=== PATIENT | female | born 1955 | race Caucasian/White ===

== ENCOUNTER 2016-02-22 09:15 | Outpatient (RCR) | payer BC ==
[~2016-02-22 09:15] MED LIST: [UNRECOGNIZED DRUG - OTHER] PO
== END 2016-04-09 | disposition still patient (30) ==
LOC: MKS.ESL.PT
DX: M25.512 Pain in left shoulder (principal); M77.02 Medial epicondylitis, left elbow

== ENCOUNTER 2017-02-09 06:00 | Day surgery (SDC) | payer BC ==
[~2017-02-09] VITALS: Ht 170.2 cm; Wt 65.6 kg
[2017-02-09 06:32] VITALS: BP 147/82; PULSE 78; TEMP 97.5
[2017-02-09] MEDS ORDERED: ESTRACE0.5 MG PO (06:40)
[2017-02-09] MEDS ORDERED: NEURONTIN300 MG/CAP PO ×2 (06:41)
[2017-02-09 07:40] VITALS: BP 112/60; PULSE 62; TEMP 97.5
[2017-02-09 07:45] VITALS: BP 110/59; PULSE 58
[2017-02-09 08:00] VITALS: BP 117/65; PULSE 59
[2017-02-09 08:15] VITALS: BP 112/61; PULSE 53
== END 2017-02-09 08:15 | disposition home or self-care (01) ==
LOC: SDCO 06:00
DX: Z12.11 Encounter for screening for malignant neoplasm of colon (principal); Z86.010 Personal history of colon polyps; D12.0 Benign neoplasm of cecum
CPT/HCPCS: OP; J2250; J2405; J3010; J7030

== ENCOUNTER → 2017-03-01 | Outpatient (CLI) | payer BC ==
[~2017-03-01] VITALS: Ht 170.2 cm; Wt 66.6 kg
[~2017-03-01] MED LIST changes: +ASPIRIN 81M81 MG/TA2 PO; +ESTRACE0.5 MG PO; +NEURONTIN300 MG/CAP PO; +NEURONTIN600 MG/TAB PO; +VOLTAREN GEL 1%1 TU TP
[2017-03-01 07:15] VITALS: BP 170/86; PULSE 74
[2017-03-01 08:20] VITALS: BP 167/74; PULSE 68
== END ==
LOC: COL.RAD 02-26 07:00
DX: M54.12 Radiculopathy, cervical region (principal)
CPT/HCPCS: J1100

== ENCOUNTER → 2017-03-02 | Outpatient (CLI) | payer BC | LOC: MC.RAD 09:58 | DX: Z12.31 Encounter for screening mammogram for malignant neoplasm of breast (principal) ==

== ENCOUNTER → 2018-05-29 | Outpatient (CLI) | payer BC | LOC: MC.RAD 08:45 | DX: Z12.31 Encounter for screening mammogram for malignant neoplasm of breast (principal) ==

== ENCOUNTER 2018-11-19 22:19 | Emergency (ER) | payer BC ==
[~2018-11-19] VITALS: Ht 167.6 cm; Wt 61.8 kg
[2018-11-19 22:25] VITALS: BP 146/78; TEMP 98.1
[2018-11-19] MEDS ORDERED: CRUTCHES MC (23:47)
[2018-11-20 00:25] VITALS: PULSE 74
== END 2018-11-20 00:25 | disposition home or self-care (01) ==
LOC: COL.ER 22:19
DX: S93.402A Sprain of unspecified ligament of left ankle, initial encounter (principal); G89.29 Other chronic pain; M54.9 Dorsalgia, unspecified; M54.2 Cervicalgia; X50.1XXA Overexertion from prolonged static or awkward postures, initial encounter; Y92.009 Unspecified place in unspecified non-institutional (private) residence as the place of occurrence of the external cause; Z79.82 Long term (current) use of aspirin
CPT/HCPCS: Q4045

== ENCOUNTER → 2019-06-02 | Outpatient (CLI) | payer MEDICARE, BC ==
[~2019-06-02] MED LIST changes: +CRUTCHES MC
== END ==
LOC: MC.RAD 09:15
DX: Z12.31 Encounter for screening mammogram for malignant neoplasm of breast (principal)

== ENCOUNTER → 2020-06-02 | Outpatient (CLI) | payer MEDICARE, BC | LOC: MC.RAD 08:30 | DX: Z12.31 Encounter for screening mammogram for malignant neoplasm of breast (principal) ==

== ENCOUNTER 2021-01-20 15:31 | Emergency (ER) | payer MEDICARE, BC ==
[~2021-01-20] VITALS: Ht 167.6 cm; Wt 60.9 kg
[2021-01-20 16:48] LABS: BASO % 0.7 % (0.0-2.0); EOS # 0.2 K/mm3 (0.0-0.7); EOS % 3.5 % (0-4.0); GRAN # 2.2 K/mm3 (1.4-6.5); GRAN % 49.8 % (42.2-75.2); HEMATOCRIT 38.5 % (37.0-47.0); HEMOGLOBIN 12.4 g/dl (12.5-16.0); LYMPH # 1.4 K/mm3 (1.2-3.4); LYMPH % 31.2 % (20.0-51.0); MEAN CELL VOLUME 95 fl (80.0-100.0); MEAN CORPUSCULAR HEMOGLOBIN 31 pg (27.0-31.0); MEAN CORPUSCULAR HGB CONC 32 g/dl (33.0-37.0); MEAN PLATELET VOLUME 10.4 fl (7.4-10.4); MONO # 0.6 K/mm3 (0.1-0.6); MONO % 14.3 % (1.7-9.3); PLATELET COUNT 160 K/mm3 (130-400); RED BLOOD COUNT 4.04 M/mm3 (4.10-5.30); REDCELL DISTRIBUTION WIDTH-CV 13.1 % (11.5-14.5)
[2021-01-20 16:58] LABS: ALBUMIN 3.8 gm/dL (3.4-4.8); BILIRUBIN,TOTAL 0.4 mg/dL (0.2-1.2); CREATININE, serum 0.88 mg/dL (0.57-1.11); POTASSIUM 4.1 mmol/L (3.5-4.5); TOTAL PROTEIN 6.7 gm/dL (6.2-8.1)
[2021-01-20 20:25] VITALS: BP 172/83; PULSE 71; TEMP 98.2
== END 2021-01-20 20:30 | disposition short-term general hospital (02) ==
LOC: COL.ER 15:31
PROVIDERS: Personal Emergency Response Attendant
DX: S06.5X0A Traumatic subdural hemorrhage without loss of consciousness, initial encounter (principal); W19.XXXA Unspecified fall, initial encounter; W22.8XXA Striking against or struck by other objects, initial encounter
CPT/HCPCS: J2270; J2405; J7030

== ENCOUNTER → 2021-04-25 | Outpatient (RCR) | payer MEDICARE, BC | END | disposition home or self-care (01) | LOC: WSST | DX: S06.9X9S Unspecified intracranial injury with loss of consciousness of unspecified duration, sequela (principal); R41.89 Other symptoms and signs involving cognitive functions and awareness ==

== ENCOUNTER 2021-05-09 14:15 | Outpatient (RCR) | payer MEDICARE, BC | END 2021-05-23 | disposition home or self-care (01) | LOC: WSST | DX: S06.9X9S Unspecified intracranial injury with loss of consciousness of unspecified duration, sequela (principal); R41.89 Other symptoms and signs involving cognitive functions and awareness ==

== ENCOUNTER → 2021-06-30 | Outpatient (CLI) | payer MEDICARE, BC | LOC: MC.RAD 08:18 | DX: Z12.31 Encounter for screening mammogram for malignant neoplasm of breast (principal) ==

== ENCOUNTER → 2023-07-24 | Outpatient (CLI) | payer MEDICARE, BC ==
[~2023-07-24] MED LIST changes: +DEPAKOTE 250MG250 MG PO; +EFFEXOR 75M75 MG/TAB PO; +KLONOPIN 0.5MG0.5 MG PO; +MAG-OX 400400 MG/TAB PO; +MURO-128 5% OP3.5 GM OP; +NORVASC2.5 MG PO; +PAMELOR 10MG10 MG PO; +QUESTRAN4 GM/9 GM PO; +TOPROL XL100 MG PO
== END ==
LOC: MC.RAD 09:15
DX: Z12.31 Encounter for screening mammogram for malignant neoplasm of breast (principal)

== ENCOUNTER 2023-10-30 22:46 | Inpatient (IN) | payer MEDICARE, BC ==
[~2023-10-30] VITALS: Ht 170.2 cm; Wt 65.8 kg
[~2023-10-30 22:46] MED LIST changes: -EFFEXOR 75M75 MG/TAB PO; +EFFEXOR XR75 MG/CAP PO; +TOPROL XL 50MG50 MG PO; -TOPROL XL100 MG PO
[2023-10-30] MEDS ORDERED: Ketorolac 15 MG/ML VIAL IV ONE (23:00)
[2023-10-31] VITALS (10 sets, daily range): BP systolic 113–150; BP diastolic 65–78; PULSE 63–73; TEMP 97.5–98.4
[2023-10-31] MEDS ORDERED: Morphine 4 MG/ML VIAL IV ONE (00:30)
[2023-10-31 00:54] LABS: BASO % 0.5 % (0.0-2.0); EOS # 0.1 K/mm3 (0.0-0.7); EOS % 1.1 % (0.0-4.0); GRAN # 5.8 K/mm3 (1.4-6.5); GRAN % 76.1 % (42.2-75.2); HEMATOCRIT 38.3 % (37.0-47.0); HEMOGLOBIN 12.4 g/dl (12.5-16.0); LYMPH % 12.8 % (20.0-51.0); MEAN CELL VOLUME 95 fl (80.0-100.0); MEAN CORPUSCULAR HEMOGLOBIN 31 pg (27-31); MEAN CORPUSCULAR HGB CONC 32 g/dl (33.0-37.0); MONO # 0.7 K/mm3 (0.1-0.6); MONO % 9.1 % (1.7-9.3); PLATELET COUNT 208 K/mm3 (130-400); RED BLOOD COUNT 4.05 M/mm3 (4.10-5.30); REDCELL DISTRIBUTION WIDTH-CV 14.5 % (11.5-14.5)
[2023-10-31] MEDS ORDERED: EFFEXOR XR75 MG/CAP (01:05)
[2023-10-31] MEDS ORDERED: TRICOR145 MG PO (01:06)
[2023-10-31] MEDS ORDERED: NEURONTIN600 MG/TAB PO (01:11)
[2023-10-31 01:15] LABS: ALBUMIN 3.8 g/dL (3.4-4.8); BILIRUBIN,TOTAL 0.2 mg/dL (0.2-1.2); CREATININE, serum 0.98 mg/dL (0.57-1.11); POTASSIUM 4.4 mEq/L (3.5-4.5); TOTAL PROTEIN 6.9 g/dl (6.2-8.1)
[2023-10-31] MEDS ORDERED: Morphine 4 MG/ML VIAL IV PRN (01:45)
[2023-10-31] MEDS ORDERED: NS 1,000 ML IV SCH (02:15)
--- NOTE | 2023-10-31 02:31 | NUR ---
pt arrived to room 324 from ER at 0155. pt assisted to bed via slideboard and staff help. pt stating she only feels pain when moving. pt vitals WNL. pt on 2L NC as precaution to small pneumo, tolerating well. pt denies SOB. LSCTA. pt refused to put on gown d/t pain. yellow socks and fall risk band placed instead, yellow gown in room. admission, physical assessment, and med rec complete. pt authorized staff to give any information regarding patient care to Jagjit if he calls. pt reports she does wear contacts/glasses but does not have them with her d/t fall being in the shower and will bring everything tomorrow. ivf at 75ml/hr running to left ac iv without issue. pt denies hitting her head during fall. pt alert and oriented x4. pt reported 9/10 back pain after repositioning and requesting medications. PRN morphine administered per orders. fall precautions in place. call light in reach. all needs met at this time.
[2023-10-31] MEDS ORDERED: Ibuprofen 600 MG TAB PO PRN (07:30)
[2023-10-31] MEDS ORDERED: NEURONTIN300 MG/CAP PO (08:25)
--- NOTE | 2023-10-31 10:54 | NUR ---
D: Tower Helper stopped by room on rounds. A: Pt was resting and content with in the room. Pt has no needs right now. Both appreciated the visit. P: Tower Helper informed pt that if she needed anything from the glass sagger area to let her nurse know. Tower Helper will follow up as needed.
--- NOTE | 2023-10-31 10:59 | NUR ---
PT IN LAYING IN BED. ASSESSMENT COMPLETED EARLIER THIS MORNING. STATES THAT SHE DOES NOT LIKE MOVING BECAUSE OF THE PAIN IN HER SIDE. HER IS IN HER ROOM WITH HER. IV FLUIDS RUNNING THROUGH LAC, NO S&S OF IV COMPLICATIONS. PT HAS 2L O2 VIA NC GOING AT THIS MOMENT. CALL LIGHT WITHIN REACH NO OTHER CONCERNS AT THIS TIME.
--- NOTE | 2023-10-31 12:31 | NUR ---
Research Program Assistant met with patient to discuss discharge planning. Patient lives in [place] with her , Jagjit (ph#[phone]) who is at bedside. Patient sees Dr. Lance for primary care and gets medications from [facility] pharmacy with no difficulties. Patient does not normally use any DME but is currently on oxygen. Patient stated she is normally independent with ADLS including driving. Patient reported her , Jagjit is DPOA-HC. Patient hopes to be able to return home at time of discharge. Discharge Plan: Home
--- NOTE | 2023-10-31 16:33 | NUR ---
incentive spirometer not provided, contraindicated by respiratory therapist due to pneumothorax.
--- NOTE | 2023-10-31 19:02 | NUR ---
report received from юлия sarmiento. pt resting in bed with family at bedside. pt continues to report pain with movement but states she is comfortable. fall precautions in place. call light in reach. all needs met at this time.
--- NOTE | 2023-10-31 20:25 | NUR ---
shift assessment complete, see documentation. pt resting in bed, equal and unlabored breaths noted. no outward signs on pain present. pt ambulated to bathroom with x1 staff assist and tolerated well. fall precautions in place. call light in reach. all needs met at this time.
[2023-11-01] VITALS (12 sets, daily range): BP systolic 133–179; BP diastolic 73–92; PULSE 67–107; TEMP 98–98.3
--- NOTE | 2023-11-01 03:52 | NUR ---
pt reporting 9/10 rib pain, prn norco administered per orders.
--- NOTE | 2023-11-01 04:36 | NUR ---
pt reporting back spasms and a headache requesting PRN. morphine administered per orders.
--- NOTE | 2023-11-01 11:30 | NUR ---
PATIENT ALERT AND ORIENTED X4. VSS. PATIENT HERE FOR RIGHT RIB FX S/P FALL. PATIENT ON 2LNC. PATIENT REPORTS PAIN /, REQUESTS PAIN MEDICATION. PATIENT REPORTS SHE HAS NOT VOIDED BUT ONCE SINCE ADMISSIONS. PATIENT AMBULATED TO BATHROOM WITH THIS NURSE AND PCT. PATIENT EDUCATED ON IMPORTANCE OF EMPTYING BLADDER. PATIENT ENCOURAGED TO AMBULATE. THERAPY TO WORK WITH PATIENT TODAY. NO FURTHER NEEDS. CALL LIGHT IN REACH.
[2023-11-01] MEDS ORDERED: amLODIPine 5 MG TAB PO SCH (12:56)
[2023-11-01] MEDS ORDERED: SODIUM CHLORIDE 5% OP SCH (17:26)
[2023-11-01] MEDS ORDERED: hydrALAZINE 10 MG TAB PO PRN (18:00)
[2023-11-01] MEDS ORDERED: Albuterol/Ipratropium 3 MG-0.5 MG/3 ML Neb Soln IH PRN (18:00)
[2023-11-01] MEDS ORDERED: oxyCODONE 5 MG TAB PO PRN (18:15)
[2023-11-01] MEDS ORDERED: Acetaminophen 500 MG TAB PO SCH (18:15)
[2023-11-01] MEDS ORDERED: Mag/Al Hydrox/Simeth Susp 30 ML CUP PO PRN (18:45)
[2023-11-01] MEDS ORDERED: Albuterol/Ipratropium 3 MG-0.5 MG/3 ML Neb Soln IH SCH (19:00)
--- NOTE | 2023-11-01 19:10 | NUR ---
PT IN RECLINER, ASSISTED TO W/C TO GO TO CT.
--- NOTE | 2023-11-01 20:39 | NUR ---
PT IN BED AFTER CT SCAN. MEDICATED WITH HS MEDS INCLUDING OXYCODONE 5MG PO AND APRESOLINE 10MG PO FOR NVV=[id number]. IVF TO LAC INFUSING WITHOUT PROBLEM. HAS RT RIB PAIN, SMALL BRUISE TO RT UPPER BACK NOTED. WEARING OXYGEN AT 2L/NC.
[2023-11-01] MEDS ORDERED: Magnesium Oxide 400 MG TAB PO SCH (21:00)
[2023-11-01] MEDS ORDERED: Gabapentin 300 MG CAP PO SCH (21:00)
[2023-11-01] MEDS ORDERED: clonazePAM 0.25 MG TAB PO SCH (21:00)
--- NOTE | 2023-11-01 22:30 | NUR ---
REPEATED OXYCODONE 5MG PO FOR RT RIB PAIN. PT UP TO BATHROOM, HAS BM AND BACK TO BED.
[2023-11-02] VITALS (17 sets, daily range): BP systolic 118–167; BP diastolic 41–87; PULSE 66–94; TEMP 97.5–98.5
--- NOTE | 2023-11-02 02:23 | NUR ---
MEDICATED WITH ES TYLENOL 1000MG PO AND PRN OXYCODONE 5MG PO NOW FOR RT RIB PAIN.
--- NOTE | 2023-11-02 06:29 | NUR ---
PT IN BED, SCHEDULED AM MED GIVEN WITH PRN OXYCODONE 5MG PO FOR RT RIB PAIN. OXYGEN AT 2L/NC.
[2023-11-02 06:41] LABS: HEMOGLOBIN 10.8 g/dl (12.5-16.0); MEAN CELL VOLUME 94 fl (80.0-100.0); MEAN CORPUSCULAR HEMOGLOBIN 31 pg (27-31); MEAN CORPUSCULAR HGB CONC 33 g/dl (33.0-37.0); MEAN PLATELET VOLUME 10.4 fl (7.4-10.4); PLATELET COUNT 152 K/mm3 (130-400); RED BLOOD COUNT 3.54 M/mm3 (4.10-5.30); REDCELL DISTRIBUTION WIDTH-CV 14.2 % (11.5-14.5)
[2023-11-02 06:46] LABS: HEMATOCRIT 33.1 % (37.0-47.0)
[2023-11-02 07:00] LABS: ALBUMIN 2.9 g/dL (3.4-4.8); BILIRUBIN,TOTAL 0.8 mg/dL (0.2-1.2); CALCIUM 8.5 mg/dL (8.4-10.2); CREATININE, serum 0.68 mg/dL (0.57-1.11); MAGNESIUM 1.7 mg/dL (1.6-2.6); POTASSIUM 3.8 mEq/L (3.5-4.5); TOTAL PROTEIN 5.6 g/dl (6.2-8.1)
--- NOTE | 2023-11-02 07:00 | NUR ---
Pt laying in bed. Requested washcloth for face. No further needs. Call light in reach and bed alarm on.
[2023-11-02] MEDS ORDERED: Gabapentin 300 MG CAP PO SCH (07:30)
[2023-11-02 07:37] LABS: BAND 2 % (0-10); EOSINOPHIL 3 % (0-4); LYMPHOCYTE 25 % (20.0-51.0); NEUTROPHILS 54 % (42.0-75.2)
[2023-11-02 07:38] LABS: PLATELET ESTIMATE NORMAL (NORMAL)
[2023-11-02] MEDS ORDERED: amLODIPine 5 MG TAB PO SCH (09:00)
[2023-11-02] MEDS ORDERED: amLODIPine 5 MG TAB PO ONE (09:15)
[2023-11-02] MEDS ORDERED: SODIUM CHLORIDE 5% OP PRN (09:15)
--- NOTE | 2023-11-02 09:15 | NUR ---
Pt sitting up in chair. A&Ox4. VSS. S1S2. Clear left lung, diminished R lung. Pt taking showllow breaths due to pain on R side. Pt on 1 L via NC. ABD round, soft, non-tender with audible bowel sounds. Palpable pulses in all extremities. Pt reports pain 8/10 on R side. Administered pain meds. Per Dr Tellez keep Pt NPO. Pt did not eat breakfast, had sips of water with AM meds. No further needs at this time. Call light in reach and chair alarm on.
[2023-11-02] MEDS ORDERED: LR 1,000 ML IV SCH (12:00)
[2023-11-02] MEDS ORDERED: Lidocaine PF 2% (20 MG/ML) 5 ML VIAL ONE (12:49)
[2023-11-02] MEDS ORDERED: Glycopyrrolate 0.2 MG/ML 1 ML VIAL ONE (12:50)
--- NOTE | 2023-11-02 13:05 | NUR ---
Pt off floor for CT placement.
[2023-11-02] MEDS ORDERED: droPERidol 2.5 MG/ML 2 ML VIAL IV PRN (13:15)
[2023-11-02] MEDS ORDERED: fentaNYL 50 MCG/ML 1 ML SYRINGE/VIAL [PACU/SDC ONLY] IV PRN (13:15)
[2023-11-02] MEDS ORDERED: HYDROmorphone 1 MG/1 ML SYRINGE [PACU/SDC ONLY] IV PRN (13:15)
[2023-11-02] MEDS ORDERED: hydrALAZINE 20 MG/ML 1 ML VIAL IV PRN (13:15)
[2023-11-02] MEDS ORDERED: Ondansetron 4 MG/2 ML VIAL IV PRN (13:15)
--- NOTE | 2023-11-02 14:00 | NUR ---
Pt up in room from OR. VSS. Lungs sound clear. Pt on 2 L via NC. No further needs at this time. Call light in reach and bed alarm on.
--- NOTE | 2023-11-02 14:50 | NUR ---
Public Service Administrator spoke with Hospitalist who advised he did not think patient would be able to return home at time of discharge and may need post acute rehab. SW met with patient to discuss options and provide Medicare.gov list of SNF options. SW also discussed IPR as an option. Patient requested referrals be sent to [facility], [facility], and [facility]. MARY ANN gave referrals to all three. Jonah at [facility] advised they could accept referral. [facility] advised they would continue to follow as patient is having a chest tube placed today. Discharge Plan: Post Acute Rehab
[2023-11-03] VITALS (14 sets, daily range): BP systolic 122–194; BP diastolic 68–100; PULSE 57–93; TEMP 97.4–98.1
[2023-11-03 06:42] LABS: BASO % 0.5 % (0.0-2.0); EOS # 0.2 K/mm3 (0.0-0.7); EOS % 4.2 % (0.0-4.0); GRAN # 3.6 K/mm3 (1.4-6.5); GRAN % 64.7 % (42.2-75.2); HEMOGLOBIN 11.3 g/dl (12.5-16.0); LYMPH # 0.9 K/mm3 (1.2-3.4); LYMPH % 16.6 % (20.0-51.0); MEAN CELL VOLUME 95 fl (80.0-100.0); MEAN CORPUSCULAR HEMOGLOBIN 30 pg (27-31); MEAN CORPUSCULAR HGB CONC 32 g/dl (33.0-37.0); MEAN PLATELET VOLUME 10.7 fl (7.4-10.4); MONO # 0.8 K/mm3 (0.1-0.6); MONO % 13.8 % (1.7-9.3); PLATELET COUNT 166 K/mm3 (130-400); RED BLOOD COUNT 3.73 M/mm3 (4.10-5.30)
[2023-11-03 06:45] LABS: HEMATOCRIT 35.3 % (37.0-47.0)
--- NOTE | 2023-11-03 07:00 | NUR ---
Pt sleeping in bed. Chest tube on -20 cm suction. Call light in reach and bed alarm on.
--- NOTE | 2023-11-03 07:45 | NUR ---
Pt laying in bed. A&Ox4. VSS. S1S2. Clear lungs on 2 L via NC. ABD round soft, non-tender with audible bowel sounds. Palpable pulses in all extremities. R chest tube site is CDI with gauze dressing. Red drainage in tubing. Chest tube on suction -20 cm. R AC INT, patent. No further needs. Call light in reach and bed alarm on.
[2023-11-03] MEDS ORDERED: amLODIPine 10 MG TAB PO SCH (09:00)
--- NOTE | 2023-11-03 11:01 | NUR ---
Data: Spiritual care visit offered during Check Processor rounds. Patient politely declined and shared a short conversation about the weather. Assessment: None. Patient declined. Plan of Care: Check Processor educated Patient as to how to request a Check Processor should she change her mind. Chaplains will remain available as requested while Patient is admitted to this hospital.
[2023-11-04] VITALS (11 sets, daily range): BP systolic 124–160; BP diastolic 66–79; PULSE 69–95; TEMP 97.5–98.6
[2023-11-04] MEDS ORDERED: Magnesium Oxide 400 MG TAB PO PRN (04:27)
--- NOTE | 2023-11-04 08:00 | NUR ---
PT AWAKE AND RESTING IN CHAIR. SCHEDULED MEDS GIVEN PER eMAR. CHEST TUBE IN PLACE WITH RED COLORED DRAINAGE. C/O 8/10 PAIN AT CHEST TUBE SITE THAT RADIATES TO BACK. PT DENIES SOA. BED ALARM ON AND CALL LIGHT WITHIN REACH. ALL NEEDS MET AT THIS TIME.
[2023-11-04] MEDS ORDERED: Lidocaine 4% Topical Patch TP SCH (10:30)
--- NOTE | 2023-11-04 10:42 | NUR ---
PT UP AND RESTING IN CHAIR. THIS NURSE CHANGED DRESSING ON R CHEST AT CHEST TUBE SITE TO OCCLUSIVE GAUZE DRESSING. NO FURTHER CONCERNS AT THIS TIME.
--- NOTE | 2023-11-04 11:50 | NUR ---
SW sent updates to [facility] and [facility] for review. SW will continue to follow.
--- NOTE | 2023-11-04 18:00 | NUR ---
DISCONTINUED PT'S CHEST TUBE FROM SUCTION PER ORDER AT THIS TIME. PT STATES PAIN IS 0/10. NO FURTHER CONCERNS. PT AWAKE AND RESTING. BED ALARM ON AND CALL LIGHT WITHIN REACH.
--- NOTE | 2023-11-04 18:23 | NUR ---
Reviewed all charting completed by ANIKA Kiran. Agree with all assessments and notes.
[2023-11-04] MEDS ORDERED: Polyethylene Glycol 3350 17 GM PDS PO SCH (21:00)
[2023-11-05 00:27] VITALS: BP_SYST 131
[2023-11-05 03:27] VITALS: BP 120/68; PULSE 79; TEMP 97.6
[2023-11-05 03:51] VITALS: BP_SYST 120
--- NOTE | 2023-11-05 06:33 | NUR ---
PT CONTINUES TO REPORT PAIN SCORES 8/10, GIVING OXY, TYLENOL AND MOTRIN. CT TO H20 SEAL, NO DRAINAGE THIS SHIFT, DSG CDI. UP TO RESTROOM WITH ASSIST, NO BM YET, BUT DOES NOT WANT SCHEDULED MIRALAX. JUST SENNA FOR NOW.
--- NOTE | 2023-11-05 06:40 | NUR ---
Pt sitting up in bed. Respiratory Therapy working with Pt. No needs at this time. Call light in reach and bed alarm on.
[2023-11-05 07:28] VITALS: BP 131/72; PULSE 83; TEMP 97.9
--- NOTE | 2023-11-05 08:24 | NUR ---
Pt laying in bed. A&Ox4. VSS. S1S2. Clear lungs on RA. ABD round, soft, non-tender with audible bowel sounds. Palpable pulses in all extremities. SCDs on bilaterally. Pt reports sometimes having some pain in lower chest. Pain 2/10 at this time. Chest tube in place in R chest, dressing CDI. No further needs. Call light in reach and bed alarm on.
[2023-11-05] MEDS ORDERED: LIDODERM 5% PATC1 EA TP (08:37)
[2023-11-05] MEDS ORDERED: IBU800 M1 PO (08:38)
[2023-11-05] MEDS ORDERED: ROXICODONE 55 MG/TAB PO (08:39)
[2023-11-05] MEDS ORDERED: Polyethylene Glycol 3350 17 GM PDS PO SCH (09:00)
[2023-11-05] MEDS ORDERED: NORVASC 10MG10 MG PO (09:12)
[2023-11-05 09:52] VITALS: BP_SYST 131
--- NOTE | 2023-11-05 11:18 | NUR ---
Pt and educated on D/C information and instructions. Answered Pt questions. INT D/C'ed from R AC. Pressure bandage applied. No further needs. Pt transferred to vehicle via by SUGRA Benedict.
== END 2023-11-05 11:20 | disposition home or self-care (01) | DRG 199 ==
LOC: COL.ER 22:46 → SURG 10-31 00:53
PROVIDERS: Nurse Practitioner; ADMIT Surgery
PROC: 0W9930Z Drainage of Right Pleural Cavity with Drainage Device, Percutaneous Approach (ICD-10-PCS; principal; 2023-11-02 13:30)
DX: S27.0XXA Traumatic pneumothorax, initial encounter (principal); J96.01 Acute respiratory failure with hypoxia; S22.41XA Multiple fractures of ribs, right side, initial encounter for closed fracture; J98.11 Atelectasis; F10.939 Alcohol use, unspecified with withdrawal, unspecified; I10 Essential (primary) hypertension; W01.0XXA Fall on same level from slipping, tripping and stumbling without subsequent striking against object, initial encounter; R53.81 Other malaise; E78.1 Pure hyperglyceridemia; K21.9 Gastro-esophageal reflux disease without esophagitis; G62.9 Polyneuropathy, unspecified; Y90.6 Blood alcohol level of 120-199 mg/100 ml; Y93.E1 Activity, personal bathing and showering; Y92.091 Bathroom in other non-institutional residence as the place of occurrence of the external cause; Z90.710 Acquired absence of both cervix and uterus; Z88.8 Allergy status to other drugs, medicaments and biological substances; Z79.899 Other long term (current) drug therapy; Z23 Encounter for immunization
CPT/HCPCS: A7041; A7048; A9284; G0378; J1885; J2270; J2704; J7030